=== PATIENT | male | born 1950 | race Hispanic/Latino ===

== ENCOUNTER 2017-06-25 07:56 | Emergency (ER) | payer MEDICARE, BC ==
[2017-06-25 08:16] VITALS: RESP 19; TEMP 97
--- NOTE | 2017-06-25 08:44 | ED PDOC ---
HPI: Male Pain Time Seen by Provider: 06/25/17 08:09 Chief Complaint (Nursing): Male Genitourinary Chief Complaint (Provider): inability to urinate History Per: Patient History/Exam Limitations: no limitations Onset/Duration Of Symptoms: Hrs (x 7 hours ) Additional Complaint(s): Perez Hubbard is a 66 year old male, with a previous medical history of a ruptured appendicitis and acid reflux, who presents to the ED with complaints of inability to urinate for the past 7 hours associated with bladder pain and pressure. He denies any fever, chills or hematuria. Patient reports symptoms presented after consuming a few alcoholic beverages last night. He reports he is visiting family from [place]. PMD: none provided Past Medical History Reviewed: Historical Data Vital Signs: Last Vital Signs Temp 97.0 F L 06/25/17 08:13 Pulse 94 H 06/25/17 08:13 Resp 19 06/25/17 08:13 BP 162/97 H 06/25/17 08:13 Pulse Ox 97 06/25/17 08:13 - Medical History PMH: Asthma, HTN, Kidney Stones - Surgical History Surgical History: Appendectomy, Cholecystectomy - Family History Family History: States: Unknown Family Hx - Home Medications Home Medications: Ambulatory Orders Medication Instructions Recorded Ciprofloxacin HCl [Cipro] 250 mg PO BID #10 tab 06/25/17 Tamsulosin [Flomax] 0.4 mg PO DAILY #7 cap 06/25/17 - Allergies Allergies/Adverse Reactions: Allergies Allergy/AdvReac Type Severity Reaction Status Date / Time codeine Allergy SHORTNESS Verified 06/25/17 08:12 OF BREATH egg Allergy ITCHING Verified 06/25/17 08:13 Review of Systems ROS Statement: Except As Marked, All Systems Reviewed And Found Negative Constitutional: Negative for: Fever, Chills Genitourinary Male: Positive for: Other (bladder pain and pressure. urinary retention ). Negative for: Hematuria Physical Exam - Reviewed Nursing Documentation Reviewed: Yes Vital Signs Reviewed: Yes - Physical Exam Appears: Positive for: Non-toxic, In Acute Distress (mild painful ) Head Exam: Positive for: ATRAUMATIC, NORMAL INSPECTION, NORMOCEPHALIC Skin: Positive for: Normal Color, Warm, Dry Eye Exam: Positive for: Normal appearance ENT: Positive for: Normal ENT Inspection Neck: Positive for: Normal, Painless ROM Cardiovascular/Chest: Positive for: Regular Rate, Rhythm. Negative for: Tachycardia Respiratory: Positive for: Normal Breath Sounds. Negative for: Respiratory Distress Gastrointestinal/Abdominal: Positive for: Bowel Sounds, Soft, Other (suprapubic fullness ). Negative for: Distended, Guarding, Rebound Back: Positive for: Normal Inspection Extremity: Positive for: Normal ROM. Negative for: Pedal Edema, Swelling Neurologic/Psych: Positive for: Alert, Oriented - ECG O2 Sat by Pulse Oximetry: 97 (RA) Pulse Ox Interpretation: Normal Medical Decision Making Medical Decision Making: Initial Impression: Urinary Retention Initial Plan: * urinary culture * urinalysis * reevaluation procedure note: after verbal consent- I placed a [address] catheter with immediate release of 700 + cc's of clear yellow urine. St was clamped intermittently for bladder decompression. Will check urinalysis and discharge the patient with a leg bag to be removed after 48-72 hours. 09:52 Reevaluation Urinalysis shows trace blood. Patient will be discharged home with flomax and cipro along with st care instructions. Patient will most likely return to ED in 2-[address] removal given he is not from the area. St currently contains 700 ccs of clear urine. Scribe Attestation: Documented by Bianca Lopes, acting as a scribe for Aubrey Maki D.O. Provider Scribe Attestation: All medical record entries made by the Scribe were at my direction and personally dictated by me. I have reviewed the chart and agree that the record accurately reflects my personal performance of the history, physical exam, medical decision making, and the department course for this patient. I have also personally directed, reviewed, and agree with the discharge instructions and disposition. Disposition - Clinical Impression Clinical Impression: Urinary retention - Patient ED Disposition Is Patient to be Admitted: No Counseled Patient/Family Regarding: Studies Performed, Diagnosis, Need For Followup, Rx Given - Disposition Referrals: Colin Alejo MD [Staff Provider] - Disposition: Routine/Home Disposition Time: 09:52 Condition: STABLE Additional Instructions: Return to ER for any pain, if catheter not draining, fever or significant blood in urine. Have st removed in 48-72hrs via urologist, clinic, PMD or return to ER. Take medications as directed. See urologist on return home to [place] for evaluation of prostate and bladder. Prescriptions: Ciprofloxacin HCl [Cipro] 250 mg PO BID #10 tab Tamsulosin [Flomax] 0.4 mg PO DAILY #7 cap Instructions: Urinary Retention in Men (ED), St Catheter Placement and Care (ED), Urinary Leg Bag (GEN) Forms: [employer] (Vietnamese)
[2017-06-25 09:21] LABS: RBC URINE 1 /hpf (0-3); URINE BILIRUBIN NEGATIVE (NEGATIVE); URINE BLOOD SMALL (NEGATIVE); URINE COLOR YELLOW (YELLOW); URINE GLUCOSE (UA) NEG (Normal); URINE KETONE NEGATIVE (NEGATIVE); URINE LEUKOCYTE ESTERASE NEG Leu/uL (Negative); URINE PROTEIN NEGATIVE (NEGATIVE); URINE UROBILINOGEN 0.2-1.0 mg/dL (0.2-1.0); WBC URINE < 1 /hpf (0-5)
[2017-06-25 10:02] VITALS: BP 132/74; PULSE 82
[2017-06-25 15:29] VITALS: O2SAT 97
== END 2017-06-25 10:11 | disposition home or self-care (01) ==
LOC: SUPCPDRO 07:56 → H.ER 07:56
DX: R33.9 Retention of urine, unspecified (principal); I10 Essential (primary) hypertension; K21.9 Gastro-esophageal reflux disease without esophagitis

== ENCOUNTER 2017-06-27 11:51 | Emergency (ER) | payer MEDICARE, BC ==
[2017-06-27 12:12] VITALS: TEMP 98.5
--- NOTE | 2017-06-27 12:41 | ED PDOC ---
HPI: Male Pain Time Seen by Provider: 06/27/17 12:42 Chief Complaint (Nursing): Male Genitourinary Chief Complaint (Provider): catether removal History Per: Patient History/Exam Limitations: no limitations Associated Symptoms: denies: Nausea, Vomiting, Loss Of Appetite, Urinary Symptoms Additional Complaint(s): 66yo M in ED for urinary cateher removal. PT lives in [place] and will be going tomorrow to see his PMD. Pt had it placed due to urinary retention. denies fever chills nausea or vomiting. Past Medical History Reviewed: Historical Data, Nursing Documentation, Vital Signs Vital Signs: Last Vital Signs Temp 98.5 F 06/27/17 12:08 Pulse 70 06/27/17 12:08 Resp 18 06/27/17 12:08 BP 121/81 06/27/17 12:08 Pulse Ox 99 06/27/17 12:08 - Medical History PMH: Asthma, HTN, Kidney Stones - Surgical History Surgical History: Appendectomy, Cholecystectomy - Family History Family History: States: Unknown Family Hx - Home Medications Home Medications: Ambulatory Orders Medication Instructions Recorded Ciprofloxacin HCl [Cipro] 250 mg PO BID #10 tab 06/25/17 Tamsulosin [Flomax] 0.4 mg PO DAILY #7 cap 06/25/17 - Allergies Allergies/Adverse Reactions: Allergies Allergy/AdvReac Type Severity Reaction Status Date / Time codeine Allergy SHORTNESS Verified 06/25/17 08:12 OF BREATH egg Allergy ITCHING Verified 06/25/17 08:13 Review of Systems ROS Statement: Except As Marked, All Systems Reviewed And Found Negative Constitutional: Negative for: Fever, Chills Musculoskeletal: Negative for: Back Pain Physical Exam - Reviewed Nursing Documentation Reviewed: Yes Vital Signs Reviewed: Yes - Physical Exam Appears: Positive for: Well, Non-toxic, No Acute Distress Skin: Positive for: Normal Color, Warm, DRY Cardiovascular/Chest: Positive for: Regular Rate, Rhythm Respiratory: Positive for: CNT, Normal Breath Sounds Gastrointestinal/Abdominal: Positive for: Normal Exam, Bowel Sounds, Soft. Negative for: Tenderness Back: Positive for: Normal Inspection. Negative for: L CVA Tenderness, R CVA Tenderness Neurologic/Psych: Positive for: Alert, Oriented - ECG O2 Sat by Pulse Oximetry: 99 - Progress ED Course And Treament: catheter removed and will have pt urinate in ER. Medical Decision Making Medical Decision Making: pt advised to continue f/u with pmd. Disposition - Clinical Impression Clinical Impression: Urinary catheter insertion/adjustment/removal - Patient ED Disposition Is Patient to be Admitted: No Counseled Patient/Family Regarding: Need For Followup - Disposition Disposition: Routine/Home Disposition Time: 12:55 Condition: GOOD Instructions: Benign Prostatic Hypertrophy (ED) Forms: [employer] (Montenegrin)
[2017-06-27 12:55] VITALS: O2SAT 99
[2017-06-27 12:56] VITALS: BP 121/81; PULSE 70; RESP 18
== END 2017-06-27 14:26 | disposition home or self-care (01) ==
LOC: H.ER 11:51
DX: Z46.6 Encounter for fitting and adjustment of urinary device (principal)